=== PATIENT | female | born 1960 ===

== ENCOUNTER 2024-05-08 05:33 | Day surgery (SDC) | payer OTHER ==
[2024-04-29 13:17] VITALS: BP 154/78
[~2024-05-08] VITALS: Ht 157.5 cm; Wt 70.8 kg
[~2024-05-08 05:33] MED LIST: COZAAR50 MG PO; DILTIAZEM 24HR240 MG PO; MONTELUKAST SOD10 MG PO; PROAIR RESPICL90 MCG IH; ROSUVASTATIN CA10 MG PO; SYNTHROID100 MCG PO; ZETIA10 MG PO
[2024-05-08] MEDS ORDERED: METRONIDAZOLE/SODIUM CHLORIDE 500 MG/100 ML PIGGYBACK IV ONE (12:28)
[2024-05-08] MEDS ORDERED: CEFAZOLIN SODIUM 1,000 MG VIAL ONE (12:28)
[2024-05-08] MEDS ORDERED: POVIDONE-IODINE 118 ML BOTT TOP ONE (12:48)
== END 2024-05-08 17:40 | disposition home or self-care (01) ==
LOC: CIR.AMB 05:33 → AMB-ENDOS 12:15 → EDBD 12:15 → CIR.AMB 12:15
PROVIDERS: ATTEND Obstetrics & Gynecology Gynecologic Oncology
DX: D39.8 Neoplasm of uncertain behavior of other specified female genital organs (principal); E03.8 Other specified hypothyroidism; M19.90 Unspecified osteoarthritis, unspecified site; I10 Essential (primary) hypertension; Z88.6 Allergy status to analgesic agent